=== PATIENT | female | born 1985 | race Hispanic/Latino ===

== ENCOUNTER 2021-02-25 07:52 | Day surgery (SDC) | payer OTHER ==
[2021-02-25 08:00] LABS: Specific Gravity >= 1.030 (1.005-1.030)
[2021-02-25] MEDS ORDERED: Ringers Lactate 1,000 ML IV ONE ×4 (08:12→15:35)
[2021-02-25] MEDS ORDERED: CEFAZOLIN/NS 1gm 1 GM/50 ML BAG ONE (08:12)
[2021-02-25] MEDS ORDERED: SCOPOLAMINE HYDROBROMIDE PATCH TD ONE (08:27)
[2021-02-25 08:34] VITALS: O2SAT 100
[2021-02-25] MEDS ORDERED: NS 0.9% VIAL 10 ML ONE ×3 (09:14→11:56)
[2021-02-25] MEDS ORDERED: LIDOCAINE 1% MPF 5 ML VIAL ONE (09:14)
[2021-02-25] MEDS ORDERED: propofoL 200 MG/20 ML VIAL IV ONE (09:14)
[2021-02-25] MEDS ORDERED: dexAMETHasone 10 MG/ML VIAL ONE (09:14)
[2021-02-25] MEDS ORDERED: MIDAZOLAM HCL 2 MG/2 ML INJ ONE (09:14)
[2021-02-25] MEDS ORDERED: FENTANYL CITR 250 MCG/5 ML ONE (09:14)
[2021-02-25] MEDS ORDERED: VECURONIUM 10 MG/VIAL IV ONE ×2 (09:15→12:54)
[2021-02-25] MEDS ORDERED: LANO/MINERAL OIL/PETRO 3.5 GM ONE (09:15)
[2021-02-25] MEDS ORDERED: ONDANSETRON 4 MG/2 ML VIAL ONE ×2 (09:15→15:29)
[2021-02-25] MEDS ORDERED: GENTAMICIN SULF 80 MG/2ML INJ ONE (10:13)
[2021-02-25] MEDS ORDERED: CEFAZOLIN SODIUM 1 GM/VIAL ONE (10:13)
[2021-02-25] MEDS ORDERED: EPHEDRINE SULF 50 MG/ML VIAL ONE (11:56)
[2021-02-25] MEDS ORDERED: Mastisol Adhesive Liq ONE (12:48)
[2021-02-25] MEDS ORDERED: GLYCOPYRROLATE 0.2 MG/ML SYR ONE (15:29)
[2021-02-25] MEDS ORDERED: KETOROLAC 30 MG/ML INJ ONE (15:29)
[2021-02-25] MEDS ORDERED: NEOSTIGMINE 1 MG/ML -5 ML ONE (15:29)
[2021-02-25] MEDS ORDERED: CODEINE 30MG/APAP 300MG TAB ONE (16:42)
[2021-02-25 17:30] VITALS: BP 102/52; TEMP 98.5
--- NOTE | 2021-02-26 03:11 | OP ---
Surgeon: Jesu Reed MD Preoperative Diagnosis: Breast descent, hypomastia. Postoperative Diagnosis: Breast descent, hypomastia. Procedure: Mastopexy augmentation. Anesthesia: General. Procedure In Detail: After satisfactory induction of general anesthesia, the chest was prepped with DuraPrep, dry sterile drapes applied in the usual manner. A 42 template was used to outline the righ t and left areola. Eccentric incision of 3.5 cephalad, 3.5 medial, 1 cm inferior lateral was outline in both breasts. Intervening skin was de-epithelialized with dermabrader. Straps were elevated at 12 o'clock and 3 o'clock position on the right, moving to the left. The dissection proceeded down th e perimeter of the incision. Flaps were approximately 1 cm thick. This proceeded to the breast circ umference pocket. After this was done, then the straps were woven. The straps were woven horizontal ly in and out, and then loops of pectoralis major, then I spread a loop near the origin, and then loo ped out at the edge of the pectorals major. The 3 o'clock strap was moved horizontally and then loop ed upon itself after it was looped to the pectoralis major and looped . Then the 2 straps were looped through the opposite straps and tied with 2-0 Ethibond suture. Both sides were _. The patient then had the right-sided approach. The retropectoral dissection has been performed. A 250 was placed, it was wrong size, replaced with 200, closed it with 3-0 Vicryl. Left side 200 pl aced, closed with 3-0 Vicryl up from the lateral pectoral major incision. This was done after the wo unds were irrigated with antibiotic solution. Then the wounds were closed with 2-0 [place]-Matt pursestr ing, followed by 4-0 PDS running subcuticular. Both sides were done. Then tincture of benzoin and S mikey-Strips were applied. Fluffs, Jose Raul wrap, and 5 x 5s. The patient tolerated the procedure well. The implants placed were 200 on each side. GH/MODL Voice ID: [id number] Report ID: [id number]
== END 2021-02-25 17:39 | disposition home or self-care (01) ==
LOC: OR 07:52
PROVIDERS: ATTEND Specialist
PROC: 0HSV0ZZ Reposition Bilateral Breast, Open Approach (ICD-10-PCS; principal; 2021-02-25 09:00)
DX: N64.81 Ptosis of breast (principal); N64.82 Hypoplasia of breast
CPT/HCPCS: 81025; 19316; J2704; J1580; J2250; J3010; J1100; J2710; J0690 ×2; J7120 ×4; J2405 ×2

== ENCOUNTER 2021-03-23 07:42 | Day surgery (SDC) | payer OTHER ==
[2021-03-23] MEDS ORDERED: CEFAZOLIN/NS 1gm 1 GM/50 ML BAG ONE (08:15)
[2021-03-23] MEDS ORDERED: SCOPOLAMINE HYDROBROMIDE PATCH TD ONE (08:15)
[2021-03-23] MEDS ORDERED: Ringers Lactate 1,000 ML IV ONE (08:15)
[2021-03-23 08:22] LABS: Specific Gravity > 1.030 (1.005-1.030)
[2021-03-23] MEDS ORDERED: LIDOCAINE 2% MPF 5 ML VIAL ONE (08:42)
[2021-03-23] MEDS ORDERED: dexAMETHasone 10 MG/ML VIAL ONE (08:42)
[2021-03-23] MEDS ORDERED: MIDAZOLAM HCL 2 MG/2 ML INJ ONE (08:42)
[2021-03-23] MEDS ORDERED: ROCURONIUM 50 MG/5 ML VIAL IV ONE ×2 (08:42→12:17)
[2021-03-23] MEDS ORDERED: FENTANYL CITR 100 MCG/2 ML ONE (08:42)
[2021-03-23] MEDS ORDERED: NS 0.9% VIAL 0 ML ONE (08:42)
[2021-03-23] MEDS ORDERED: BACITRACIN OINTMENT 14 GM TUBE TOP ONE (08:42)
[2021-03-23] MEDS ORDERED: LANO/MINERAL OIL/PETRO 3.5 GM ONE (08:42)
[2021-03-23] MEDS ORDERED: KETOROLAC 30 MG/ML INJ ONE (08:42)
[2021-03-23] MEDS ORDERED: propofoL 200 MG/20 ML VIAL IV ONE (08:42)
[2021-03-23] MEDS ORDERED: ONDANSETRON 4 MG/2 ML VIAL ONE (08:42)
[2021-03-23] MEDS ORDERED: Phenylephrine HCl 10 MG/ML 1 ML VIAL ONE ×2 (08:43→09:38)
[2021-03-23] MEDS ORDERED: OXYMETAZOLINE HCL 0.05% 15ML NAS ONE (08:43)
[2021-03-23] MEDS ORDERED: Mastisol Adhesive Liq ONE ×2 (08:44→12:47)
[2021-03-23] MEDS: LIDOCAINE 1% W/EPI 1:100,000 MDV 20 ML VIAL ONE ×2 (09:18→12:10)
[2021-03-23] MEDS ORDERED: NS 0.9% VIAL 10 ML ONE (09:38)
[2021-03-23] MEDS ORDERED: NS 0.9% VIAL 20 ML ONE (10:53)
[2021-03-23] MEDS ORDERED: SUGAMMADEX SODIUM 200 MG/2 ML VIAL IV ONE (12:51)
[2021-03-23] MEDS: FENTANYL CITR 100 MCG/2 ML ONE ×2 (13:51→14:01)
[2021-03-23] MEDS ORDERED: CODEINE 30MG/APAP 300MG TAB ONE (14:31)
[2021-03-23 15:41] VITALS: BP 101/57; TEMP 98; O2SAT 98
--- NOTE | 2021-03-25 14:36 | OP ---
Surgeon: Jesu Reed MD Preoperative Diagnoses: Cosmetic deformity of nose, septal deviation, and hypogenia. Postoperative Diagnoses: Cosmetic deformity of nose, septal deviation, and hypogenia. Procedure Performed: Rhinoplasty, septoplasty, chin augmentation. Anesthesia: General. Procedure In Detail: After satisfactory induction of anesthesia, 1% Xylocaine was used to infiltrate the nose and the septum. Then, the face was prepped with Betadine scrub, Betadine paint, dry sterile drapes placed. The open rhinoplasty was performed. A 15 blade was used to incise columella, flaps were elevated. A rim incision was used with the inferior marginal incision was used. Then, the flap was elevated off the nasal bones and cartilage. The excess lateral crura were resected. Medial crura was stripped all the way down to the foot. Dissection was carried down to the nasal spine. The septum was opened, free of perichondrium. The dorsal nose was exposed as well. A file was used to take down the bony prominence. The patient had a previous trauma and had large dorsal hump, as well as approximating of septum inferiorly. The lateral cartilages were incised after perichondrium was elevated and then osteotome was used to divide the nasal bones. Then, the scalpel was used to incise leaving approximately 1 cm margin of cartilage inferiorly and dorsally. A swivel knife was used to harvest cartilage graft and the suction Bovie was used for electrocautery. The patient then had the bone filed again. The septum was seperated from the lateral cartilages, and then, the patient underwent the closure of the cartilage to the septum with clear 5-0 PDS suture in horizontal mattress. The patient's cartilage graft was used for septal expansion, was held in place with 5-0 PDS sutures, and then, the lateral crura were sewn to each other. The whipstitch was placed with 4-0 chromic, closing the perichondrial flaps and the patient also had a suture placed through the nasal spine of 4 o PDS to hold the inferior caudal border of the septum. After this was done, the patient then had defatting of the tip soft tissue and then, the wound was closed with 6-0 Prolene. Prior to closure, the patient had internal nasal splints held with 2-0 silk. Then, the wound was closed with 6-0 Prolene over the columella, 5-0 Vicryl over the mucosa. Tincture of benzoin, Steri-Strips were applied, as well as thermoplastic splint. The patient was then re-prepped for the chin along with teeth. This was done after it was infiltrated with 1% lidocaine with epinephrine and dissected out by making incision outside the sulcus by about 1 cm and dissecting down. Then, we split in midline and dissected down to the periosteum of the mandible and extended both sides. Sizer was placed . the large was the correct size. Dressings consisted of Steri- Strips holding the chin implant in place. The patient tolerated the procedure well and returned to Recovery. LISA/ELLEN Voice ID: [id number] Report ID: [id number]
== END 2021-03-23 15:37 | disposition home or self-care (01) ==
LOC: OR 07:42
PROVIDERS: ATTEND Specialist
PROC: 09UK87Z Supplement Nasal Mucosa and Soft Tissue with Autologous Tissue Substitute, Via Natural or Artificial Opening Endoscopic (ICD-10-PCS; principal; 2021-03-23 09:00)
PROC: 0W050JZ Alteration of Lower Jaw with Synthetic Substitute, Open Approach (ICD-10-PCS; 2021-03-23 09:00)
DX: M95.0 Acquired deformity of nose (principal); J34.2 Deviated nasal septum; M26.09 Other specified anomalies of jaw size
CPT/HCPCS: 81025; 30420; 21120; J2704; J2370; J2250; J3010 ×2; J1100; J0690; J7120; J2405